=== PATIENT | female | born 1995 | race Caucasian/White ===

== ENCOUNTER 2025-10-12 13:30 | Outpatient (CLI) | payer BC, SELFPAY | END 2025-10-12 13:31 | disposition home or self-care (01) | LOC: NFLDREF 10-15 12:23 | PROVIDERS: Visit Provider Obstetrics & Gynecology | DX: Z34.93 Encounter for supervision of normal pregnancy, unspecified, third trimester (principal) | CPT/HCPCS: 86762; 86787 ==

== ENCOUNTER 2025-10-28 12:31 | Outpatient (CLI) | payer BC, SELFPAY ==
--- NOTE | 2025-10-28 13:00 | CRLHL7_ITS ---
For Patients: As a result of the Cures Act, medical imaging exams and procedure reports are released immediately into your electronic medical record. You may view this report before your referring provider. If you have questions, please contact your health care provider. OBSTETRICAL ULTRASOUND LIMITED INDICATION: TOLAC. Follow-up growth. CLINICAL HISTORY: LMP: 02/19/2025 SIMI by LMP: 11/26/2025 Gestational Age: 35 weeks 6 days COMPARISON: Not available. TECHNIQUE: Real-time elliott-scale transabdominal imaging of the fetus was performed. FINDINGS: Fetus: Single Cervix: Not visualized positioning: Vertex Amniotic Fluid: 5.5 cm SDP Placenta technique: Transabdominal Placenta position: Anterior heart rate: 149 bpm BIOMETRY: BPD: 8.6 cm, 34 weeks 5 days, 25% HC: 33.2 cm, 37 weeks 6 days, 69% AC: 32.9 cm, 36 weeks 6 days, 84% FL: 6.8 cm, 34 weeks 5 days, 19% FL/AC Ratio: 20.53% HC/AC ratio: 1.01 EFW: 2872 grams; 6 lbs. 5 oz. age by this ultrasound: 36 weeks 0 days SIMI by this ultrasound: 11/25/2025 Percentile by SIMI: 60% IMPRESSION: 1. Sonographic gestational age is 36 weeks 0 days and sonographic due date is 11/25/2024. Good correlation with dates. Normal interval growth. 2. Estimated weight is 60th percentile. Abdominal circumference is 84th percentile. BARRERA ESPITIA M.D. Diagnostic Radiologist [email or web address] Transcribed: 2:[address]/Dictated by: Barrera Espitia MD @ 10/28/2025 1:23:00 PM (Electronically Signed)
== END 2025-10-28 12:32 | disposition home or self-care (01) ==
LOC: US 12:32
PROVIDERS: Visit Provider Advanced Practice Midwife
DX: Z36.89 Encounter for other specified antenatal screening (principal); Z3A.36 36 weeks gestation of pregnancy
CPT/HCPCS: 76815

== ENCOUNTER 2025-10-28 15:00 | Outpatient (CLI) | payer BC, SELFPAY | END 2025-10-28 15:01 | disposition home or self-care (01) | LOC: NFLDREF 11-04 02:46 | PROVIDERS: Visit Provider Advanced Practice Midwife | DX: Z34.93 Encounter for supervision of normal pregnancy, unspecified, third trimester (principal) | CPT/HCPCS: 87081; 87653 ==